=== PATIENT | female | born 1955 | race Caucasian/White ===

== ENCOUNTER 2024-11-29 06:28 | Inpatient (IN) ==
[2024-11-17 11:21] LABS: Basophils # (Auto) 0.03 K/mcL (0.00-0.30); Basophils % (Auto) 0.6 % (0.0-2.0); Eosinophils # (Auto) 0.08 K/mcL (0.00-0.70); Eosinophils % (Auto) 1.5 % (0.0-7.0); Hematocrit 43.5 % (34.1-44.9); Lymphocytes # (Auto) 1.47 K/mcL (1.50-4.80); Lymphocytes % (Auto) 27.5 % (15.5-49.0); Mean Cell Volume 98.6 fL (80.0-100.0); Mean Corpuscular HGB Conc 32.2 g/dL (31.0-36.0); Mean Platelet Volume 10.3 fL (8.8-12.5); Monocytes # (Auto) 0.51 K/mcL (0.10-0.90); Monocytes % (Auto) 9.5 % (1.0-12.0); Neutrophils % (Auto) 60.7 % (38.0-78.0); Platelet Count 258 K/mcL (140-440); RBC 4.41 M/mcL (3.59-5.38); Red Cell Distribution Width 12.9 % (11.5-14.5); WBC 5.4 K/mcL (4.5-11.0)
[2024-11-17 11:34] LABS: Appearance,Urine Clear (Clear); Bacteria,Urine Few /hpf (0); Bilirubin,Urine Negative (Negative); Color,Urine Yellow; Glucose,Urine (UA) Negative (Negative); Ketones,Urine Negative (Negative); Leukocyte Esterase,Urine Trace /uL (Negative); Nitrate,Urine Negative (Negative); Protein,Urine Negative (Negative); Specific Gravity,Urine 1.015 (1.000-1.035); Urine Blood Negative ery/mcL (Negative); Urine RBC 0 /hpf (0-3); Urine Squamous Epithelial Cell 2 /hpf (0-4); Urine WBC 3 /hpf (0-4); Urobilinogen,Urine Normal
[2024-11-17 11:40] LABS: INR 0.9 (0.9-1.1); Prothrombin Time 13.3 sec (11.9-14.5)
[2024-11-17 11:58] LABS: ALT/SGPT 19 U/L (<40); AST/SGOT 19 U/L (<32); Albumin/Globulin Ratio 1.7 (1.0-2.3); Alkaline Phosphatase 91 U/L (39-117); Bilirubin,Total 0.5 mg/dL (0.1-1.0); Blood Urea Nitrogen 12 mg/dL (8-23); Calcium 9.5 mg/dL (8.6-10.4); Carbon Dioxide 26 mmol/L (22-30); Chloride 104 mmol/L (96-108); Globulin 2.4 gm/dL (2.2-3.7); Glomerular Filtration Rate 94; Glucose 87 mg/dL (70-105); Potassium 4.2 mmol/L (3.3-5.1); Sodium 141 mmol/L (133-145)
[2024-11-17 15:26] LABS: Estimated Average Glucose(eAG) 114 mg/dL; Hemoglobin A1C 5.6 % Hgb (4.0-6.0)
[2024-11-29] MEDS: ACETAMINOPHEN 500 MG TABLET PO SCH (06:50)
[2024-11-29] MEDS: CELECOXIB 200 MG CAPSULE PO SCH (06:51)
[2024-11-29] MEDS: oxyCODONE 10 MG TAB.ER.12H PO SCH (06:51)
[2024-11-29] MEDS: PREGABALIN 75 MG CAPSULE PO SCH (06:51)
[2024-11-29] MEDS ORDERED: GLYCOPYRROLATE 0.2 MG/ML VIAL IV ONE (06:55)
[2024-11-29] MEDS ORDERED: DEXAMETHASONE 10 MG/ML VIAL ONE (06:55)
[2024-11-29] MEDS ORDERED: LIDOCAINE 2% PF 5 ML VIAL ONE (06:55)
[2024-11-29] MEDS ORDERED: ONDANSETRON 4 MG/2 ML VIAL ONE (06:55)
[2024-11-29] MEDS ORDERED: TRANEXAMIC ACID 1,000 MG/10 ML VIAL ONE (06:55)
[2024-11-29] MEDS ORDERED: PROPOFOL 200 MG/20 ML VIAL IV ONE ×2 (06:56→15:04)
[2024-11-29] MEDS ORDERED: KETAMINE 50 MG/ML Syringe IV ONE ×2 (06:57→15:04)
[2024-11-29] MEDS ORDERED: MAGNESIUM SULFATE 2 GM/50 ML BAG IV ONE (06:57)
[2024-11-29] MEDS: ceFAZolin 3 GM in DEXTROSE 5% IN WATER 50 ML IV SCH (07:26)
[2024-11-29] MEDS ORDERED: fentaNYL 100 MCG/2 ML VIAL ONE ×2 (07:49→16:49)
[2024-11-29] MEDS ORDERED: ePHEDrine 50 MG/5 ML SYRINGE (ANEST) IV ONE (07:52)
[2024-11-29] MEDS: 0.9 % SODIUM CHLORIDE 9 ML, KETOROLAC 30 MG, ROPIVACAINE HCL/PF 49.5 ML, EPINEPHrine 0.... IJ SCH (08:15)
[2024-11-29] MEDS ORDERED: ONDANSETRON 4 MG/2 ML VIAL IV PRN ×4 (08:29→17:16)
[2024-11-29] MEDS ORDERED: IPRATROPIUM/ALBUTEROL 3 ML AMPUL.NEB NEB PRN ×2 (08:29→16:57)
[2024-11-29] MEDS ORDERED: METHOCARBAMOL 1,000 MG/10 ML VIAL IV PRN (08:29)
[2024-11-29] MEDS ORDERED: fentaNYL 100 MCG/2 ML VIAL IV PRN (08:29)
[2024-11-29] MEDS ORDERED: PHENYLephrine 1 MG/10 ML SYRINGE (ANEST) ONE (08:34)
[2024-11-29] MEDS ORDERED: ESMOLOL 100 MG/10 ML VIAL IV ONE (08:34)
[2024-11-29] MEDS ORDERED: ACETAMINOPHEN 325 MG TABLET PO PRN ×3 (08:42→17:16)
[2024-11-29] MEDS ORDERED: TEMAZEPAM 15 MG CAPSULE PO PRN ×2 (08:42→17:16)
[2024-11-29] MEDS ORDERED: BENZOCAINE/MENTHOL 1 LOZENGE PO PRN ×2 (08:42→17:16)
[2024-11-29] MEDS ORDERED: HYDROmorphone 1 MG/ML SYRINGE IV PRN (08:42)
[2024-11-29] MEDS ORDERED: MAGNESIUM HYDROXIDE 30 ML ORAL.SUSP PO PRN ×2 (08:42→17:16)
[2024-11-29] MEDS ORDERED: ROPIVACAINE HCL/PF 30 ML VIAL IJ ONE (09:25)
[2024-11-29] MEDS: TRANEXAMIC ACID 1,000 MG/10 ML VIAL IV ONE ×2 (09:25→17:32)
[2024-11-29] MEDS: DOCUSATE SODIUM 100 MG CAPSULE PO SCH (10:13)
[2024-11-29] MEDS: BUPIVACAINE LIPOSOMAL 1.3% 10 ML VIAL IJ ONE (10:13)
[2024-11-29] MEDS: ASPIRIN 81 MG TAB.CHEW CHEWED SCH (10:13)
[2024-11-29] MEDS: BUPIVACAINE 0.5% 50 ML VIAL IJ ONE ×2 (10:14→16:08)
[2024-11-29] MEDS: TRIAMCINOLONE ACETONIDE 40 MG/ML VIAL INTRAARTIC SCH (16:08)
[2024-11-29] MEDS: 0.9 % SODIUM CHLORIDE 1,000 ML IV SCH (16:18)
[2024-11-29] MEDS: 0.9 % SODIUM CHLORIDE 10 ML SYRINGE IV SCH (16:18)
[2024-11-29] MEDS: ceFAZolin 1 GM VIAL IV SCH (16:19)
[2024-11-29] MEDS ORDERED: diphenhydrAMINE 50 MG/ML VIAL IV PRN (16:57)
[2024-11-29] MEDS ORDERED: LACTATED RINGERS 250 ML IV PRN (16:57)
[2024-11-29] MEDS ORDERED: MEPERIDINE 25 MG/ML VIAL IV PRN (16:57)
[2024-11-29] MEDS ORDERED: NALOXONE HCL 0.4 MG/ML VIAL IV PRN (16:57)
[2024-11-29] MEDS ORDERED: HYDROcodone/APAP 10/325MG TABLET PO PRN (17:16)
[2024-11-29] MEDS ORDERED: 0.9 % SODIUM CHLORIDE 1,000 ML IV SCH (17:30)
[2024-11-29] MEDS: METHOCARBAMOL 1,000 MG/10 ML VIAL IV PRN (17:31)
[2024-11-29] MEDS: fentaNYL 100 MCG/2 ML VIAL IV PRN (17:31)
[2024-11-29] MEDS: LACTATED RINGERS 1,000 ML IV SCH (17:52)
[2024-11-29] MEDS: HYDROcodone/APAP 10/325MG TABLET PO PRN (20:15)
[2024-11-29] MEDS ORDERED: ASPIRIN 81 MG TAB.CHEW CHEWED SCH (21:00)
[2024-11-29] MEDS ORDERED: DOCUSATE SODIUM 100 MG CAPSULE PO SCH (21:00)
[2024-11-29] MEDS ORDERED: 0.9 % SODIUM CHLORIDE 10 ML SYRINGE IV SCH (22:00)
[2024-11-30] MEDS: LEVOTHYROXINE SODIUM 112 MCG TABLET PO SCH (07:42)
[2024-11-30] MEDS: MULTIVIT,THER IRON,CA,FA & MIN 1 TABLET PO SCH (08:39)
[2024-11-30] MEDS ORDERED: RED YEAST RICE 1200 MG PO SCH (09:00)
[2024-11-30] MEDS ORDERED: FOLIC ACID 800 MCG PO SCH (09:00)
[2024-11-30 09:06] LABS: Basophils # (Auto) 0 K/mcL (0.00-0.30); Basophils % (Auto) 0 % (0.0-2.0); Eosinophils # (Auto) 0 K/mcL (0.00-0.70); Eosinophils % (Auto) 0 % (0.0-7.0); Hemoglobin 11.4 g/dL (11.2-15.7); Lymphocytes # (Auto) 0.53 K/mcL (1.50-4.80); Mean Cell Volume 97.8 fL (80.0-100.0); Mean Corpuscular HGB Conc 32.6 g/dL (31.0-36.0); Mean Platelet Volume 10.4 fL (8.8-12.5); Monocytes # (Auto) 0.81 K/mcL (0.10-0.90); Monocytes % (Auto) 4.6 % (1.0-12.0); Neutrophils % (Auto) 92.2 % (38.0-78.0); Platelet Count 259 K/mcL (140-440); RBC 3.58 M/mcL (3.59-5.38); Red Cell Distribution Width 13.1 % (11.5-14.5); WBC 17.7 K/mcL (4.5-11.0)
[2024-11-30] MEDS: KETOROLAC 15 MG/ML VIAL IV PRN (20:48)
[2024-12-02 12:18] VITALS: TEMP 98.3; O2SAT 99
== END 2024-12-02 12:11 | DRG 470 ==
LOC: SUR 06:28 → MEDSUR 09:54
PROVIDERS: ADMIT Orthopaedic Surgery; ATTEND Orthopaedic Surgery
PROC: STINJOR (2024-11-29 15:45)